=== PATIENT | female | born 1970 | race African-American/Black ===

== ENCOUNTER 2024-05-22 18:39 | Emergency (ER) | payer MEDICAID ==
[~2024-05-22] VITALS: Ht 157.5 cm; Wt 74.0 kg
[2024-05-22 18:50] VITALS: O2SAT 99
[2024-05-22 18:52] VITALS: BP 127/79; PULSE 76; RESP 16; TEMP 36.8; O2SAT 99
[2024-05-22] MEDS ORDERED: IBUP-2029 MT (22:18)
[2024-05-22 22:30] VITALS: TEMP 98.3
[2024-05-22] MEDS: ACETAMINOPHEN 500MG TABLET PO ONE (22:30)
== END 2024-05-22 23:02 | disposition home or self-care (01) ==
LOC: ER 18:39
DX: M79.672 Pain in left foot (principal); E11.9 Type 2 diabetes mellitus without complications; W01.0XXA Fall on same level from slipping, tripping and stumbling without subsequent striking against object, initial encounter; Y93.89 Activity, other specified; Y92.89 Other specified places as the place of occurrence of the external cause; Y99.8 Other external cause status
CPT/HCPCS: 73630; 99283